=== PATIENT | female | born 1965 | race Caucasian/White ===

== ENCOUNTER 2017-01-26 18:53 | Emergency (ER) | payer MEDICARE, OTHER ==
--- NOTE | ~2017-01-26 | CR173 ---
[facility] A Service of [facility] & [facility] RADIOLOGY TEXT RESULTS PATIENT: ANIVAL TURNER LOCATION: SED : 65 UNIT #: [id number] AGE: [address]: Brian Medina MD SEX: F ORDER DR: [id number] [address] [address] [id number] E MR#: [id number] Acc #: [id number] NAME: ANIVAL TURNER : 1965 SEX: F STUDY DATE/TIME: 01/26/2017 17:58 UNIT: SED ROOM: STUDY DESCRIPTION: CR Knee 3 Views Rt Attending Physician: Brian Medina M.D. Ordering Physician: Ahsan Navarro M.D. Primary Care Physician: Gina Saleem M.D. MEDICAL IMAGING REPORT This report is preliminary unless electronic signature is present. EXAM Right knee 3 views HISTORY Fell down stairs today. Knee pain. FINDINGS 3 views are submitted. Bony elements are intact and in normal alignment. No fractures are identified. Compared with the previous films of May 2016, there has been no change. CONCLUSION Negative. Dictated by... Brian Sheikh M.D. THIS IS AN ELECTRONICALLY VERIFIED REPORT Brian Sheikh M.D. at 01/30/2017 5:10 PM KARAN/tresa TD: 01/27/2017 08:05 JOB #: [id number] MEDICAL IMAGING REPORT Page 1 of 1
--- NOTE | ~2017-01-26 | CT71 ---
[facility] A Service [facility][1] RADIOLOGY TEXT RESULTS PATIENT: ANIVAL TURNER LOCATION: SED : 65 UNIT #: [id number] AGE: [address]: Brian Medina MD SEX: F ORDER DR: [id number] [place] [id number] E MR#: [id number] Acc #: [id number] NAME: ANIVAL TURNER : 1965 SEX: F STUDY DATE/TIME: 01/26/2017 17:51 UNIT: SED ROOM: STUDY DESCRIPTION: CT Head Wo Contrast Attending Physician: Brian Medina M.D. Ordering Physician: Ahsan Navarro M.D. Primary Care Physician: Gina Saleem M.D. MEDICAL IMAGING REPORT This report is preliminary unless electronic signature is present. EXAM Noncontrast head CT. HISTORY 51-year-old female fell earlier day complains of neck pain. Loss of consciousness. COMPARISON Head CT 06/28/2016. This CT exam was performed with one or more of the following radiation dose reduction techniques: automatic exposure control, adjustment of mA and/or kV according to patient size, and iterative reconstruction. FINDINGS Axial noncontrast images were obtained from the skull base to the vertex. Ventricular size and configuration are normal. There is no evidence of acute infarct or hemorrhage. There are no extraaxial fluid collections. No mass lesion or mass effect is seen. There are no skull fractures. IMPRESSION Normal noncontrast head CT. Dictated by... Adelaida Aden M.D. THIS IS AN ELECTRONICALLY VERIFIED REPORT Adelaida Aden M.D. at 01/27/2017 5:11 PM MARK/buck TD: 01/27/2017 08:04 JOB #: [id number] [facility] A Service [facility][1] RADIOLOGY TEXT RESULTS PATIENT: ANIVAL TURNER LOCATION: SED : 65 UNIT #: [id number] AGE: [address]: Brian Medina MD SEX: F ORDER DR: MEDICAL IMAGING REPORT
--- NOTE | ~2017-01-26 | CT52 ---
[facility] A Service of [facility] RADIOLOGY TEXT RESULTS PATIENT: ANIVAL TURNER LOCATION: [facility] : 65 UNIT #: [id number] AGE: [address]: Brian Medina MD SEX: F ORDER DR: [id number] [place] [id number] E MR#: [id number] Acc #: [id number] NAME: ANIVAL TURNER : 1965 SEX: F STUDY DATE/TIME: 01/26/2017 17:56 UNIT: SED ROOM: STUDY DESCRIPTION: CT Cervical Spine Wo Cont Attending Physician: Brian Medina M.D. Ordering Physician: Ahsan Navarro M.D. Primary Care Physician: Gina Saleem M.D. MEDICAL IMAGING REPORT This report is preliminary unless electronic signature is present. EXAM CT cervical spine HISTORY 51-year-old female fell earlier today complains of neck pain, fell down steps. FINDINGS Thin section axial images performed through the cervical spine without contrast. Multiplanar reconstructed images are reviewed at a workstation. This CT exam was performed with one or more of the following radiation dose reduction techniques: automatic exposure control, adjustment of mA and/or kV according to patient size, and iterative reconstruction. Examination demonstrates postsurgical changes of C5-6 discectomy and anterior cervical fusion with firm bony fusion across the disc space. No fracture or loosening of the instrumentation. No acute fracture or malalignment. Minimal arthritic changes of the atlantoaxial joint. No significant spinal or foraminal stenosis identified on this non-myelographic CT. Extravertebral soft tissues unremarkable. IMPRESSION 1. No acute cervical spine abnormality identified. 2. Patient is status post C5-6 discectomy and anterior cervical fusion with firm bony fusion across the C5-6 disc space. Dictated by.Paramjit. Adelaida Aden M.D. THIS IS AN ELECTRONICALLY VERIFIED REPORT [facility] A Service [facility] RADIOLOGY TEXT RESULTS PATIENT: ANIVAL TURNER LOCATION: [facility] #: [id number] : [birth year] UNIT #: [id number] AGE: [address]: Brian Medina MD SEX: F ORDER DR: Adelaida Aden M.D. at 01/27/2017 5:11 PM Jannette TD: 01/27/2017 08:09 JOB #: [id number] MEDICAL IMAGING REPORT
[~2017-01-26 18:53] MED LIST: ACETAMINOPHEN PO; ADDERALL 10 MG10 M1 PO; ADDERALL 15 MG15 M1 PO; ADDERALL 30 MG30 M1 PO; ADDERALL PO; AL-MAG HYDROX-S30 M1 PO; AMBIEN PO; AMBIEN10 MG PO; AMBIEN12.5 MG PO; BACLOFEN10 MG PO; BACTRIM DS TABL1 TA2 PO; BENADRYL25 MG PO; BENTYL20 M1 PO; BENTYL20 MG DOB; BENTYL20 MG PO; CARAFATE PO; CARAFATE1 G PO; CELEXA; CELEXA PO; CELEXA10 MG PO; CITALOPRAM HBR40 MG PO; COUMADIN10 MG PO; COUMADIN4 MG PO; COUMADIN5 MG PO; DEPAKOTE PO; DICYCLOMINE HCL20 MG PO; DIFICID200 MG PO; DIGESTIVE PROB250 MG PO; DIVALPROEX SOD500 M1 PO; DURAGESIC25 MCG EXT; ELIQUIS5 MG PO; FIORICET 50-321 EACH PO; FIORICET PO; FLAGYL PO; FLAGYL250 M1 PO; FLEXERIL10 MG PO; FLONASE16 GM; GABAPENTIN600 MG PO; GABAPENTIN800 MG PO; GEODAN PO; GEODON60 MG PO; HYDROCODON-ACE1 EAC5 PO; HYDROXYZINE HCL50 MG PO; K-DUR20 ME1 PO; KEFLEX PO; KLONOPIN PO; KLONOPIN1 MG PO; LAMICTAL25 MG PO; LASIX20 MG PO; LEVAQUIN PO; LEVOFLOXACIN500 MG PO; LOMOTIL TABLET1 TAB PO; LOPERAMIDE HCL2 M1 PO; LORTAB 10-3251 EACH PO; LORTAB 10-5001 EACH PO; LORTAB 101 TAB 10/5 PO; LOVENOX SC; LOVENOX SUBQ; METRONIDAZOLE250 MG PO; MILK OF MAGNESIA PO; MILLIPRED DP5 MG PO; NAPROSYN500 MG PO; NEURONTIN PO; NEURONTIN300 MG PO; NEURONTIN600 MG PO; NEURONTIN800 MG PO; NORCO 10-325 TA1 TAB PO; NORCO 10/325 TA1 TAB PO; OFLOXACIN5 M1 OT; OMEPRAZOLE20 M2 PO; PANTOPRAZOLE SO40 MG PO; PERCOCET 10/3251 TAB PO; PERCOCET 7.5/321 TAB; PHENERGAN12.5 MG PO; PHENERGAN25 M1 DOB; PHENERGAN25 M1 PO; PHENERGAN25 MG PO; PREDNISONE PO; PROTONIX PO; REMERON SOLTAB15 MG PO; SEROQUEL PO; SORBITOL PO; TOPAMAX PO; TOPIRAGEN100 MG PO; TRAMADOL HCL50 M1 PO; TRAZODONE PO; ULTRAM PO; VALIUM10 MG PO; WARFARIN SODIU7.5 M1 PO; WARFARIN SODIUM3 M1 PO; XANAX2 MG PO; ZANTAC150 M1 PO; ZIPRASIDONE HCL40 MG PO; ZITHROMAX500 MG PO; ZYRTEC10 M1 PO; [UNRECOGNIZED DRUG - OTHER] MT
[2017-01-26 19:10] LABS: URINE SOURCE CLEAN CATCH
[2017-01-26 19:14] LABS: URINE APPEARANCE CLEAR; URINE BILIRUBIN NEG (NEG); URINE BLOOD NEG (NEG); URINE COLOR YELLOW; URINE GLUCOSE NEG (NORM); URINE KETONE NEG (NEG); URINE LEUKOCYTE ESTERASE NEG (NEG); URINE NITRATE NEG (NEG); URINE PROTEIN NEG (NEG); URINE SPECIFIC GRAVITY <=1.005 (1.003-1.035); URINE UROBILINOGEN 0.2 MG/DL (NORM)
[2017-01-26 19:15] LABS: MICRO INDICATED? NO
[2017-01-26 19:23] LABS: AMPHETAMINE NEG (NEG); BARBITURATES NEG (NEG); BENZODIAZEPINES POS (NEG); COCAINE NEG (NEG); MARIJUANA NEG (NEG); OPIATES POS (NEG); TRICYCLIC ANTIDEPRESSANTS NEG (NEG); U METHADONE NEG (NEG)
[2017-03-09] MEDS ORDERED: HYDROCODON-ACE1 EAC5 PO (16:50)
[2017-03-09] MEDS ORDERED: NEURONTIN800 MG PO (16:50)
[2017-03-09] MEDS ORDERED: XANAX0.5 M1 PO (16:51)
[2017-03-09] MEDS ORDERED: KLONOPIN1 M1 PO (16:51)
[2017-03-09] MEDS ORDERED: WELLBUTRIN XL150 M2 PO (16:51)
[2017-03-09] MEDS ORDERED: ZOLOFT50 MG PO (16:52)
[2017-03-09] MEDS ORDERED: AMBIEN12.5 M1 PO (16:52)
[2017-06-24] MEDS ORDERED: ADDERALL 15 MG15 M1 (01:38)
== END 2017-01-26 20:36 | disposition left against medical advice (07) ==
LOC: SED 18:53
PROVIDERS: Emergency Medicine
DX: S13.4XXA Sprain of ligaments of cervical spine, initial encounter (principal); S00.03XA Contusion of scalp, initial encounter; S80.01XA Contusion of right knee, initial encounter; F17.210 Nicotine dependence, cigarettes, uncomplicated; F90.9 Attention-deficit hyperactivity disorder, unspecified type; F31.9 Bipolar disorder, unspecified; W18.09XA Striking against other object with subsequent fall, initial encounter; Y92.481 Parking lot as the place of occurrence of the external cause
CPT/HCPCS: 70450; 72125; 73562; 80307; 81003; 96372; 99284; J1170; J2550

== ENCOUNTER 2017-02-26 19:36 | Emergency (ER) | payer MEDICARE ==
--- NOTE | ~2017-02-26 | CR63 ---
[facility] A Service [facility] RADIOLOGY TEXT RESULTS PATIENT: ANIVAL TURNER LOCATION: SED : 65 UNIT #: [id number] AGE: [address]: Shu Mtz SEX: F ORDER DR: [id number] [place] [id number] E MR#: [id number] Acc #: [id number] NAME: ANIVAL TURNER. : 1965 SEX: F STUDY DATE/TIME: 02/27/2017 0:03 UNIT: SED ROOM: STUDY DESCRIPTION: CR Chest 2 View Attending Physician: Shu Mtz Pa-C Referring Physician: Shu Mtz Pa-C Ordering Physician: Freddy Mcnamara Aprn Primary Care Physician: Gina Saleem M.D. MEDICAL IMAGING REPORT This report is preliminary unless electronic signature is present. EXAM PA and lateral chest HISTORY Chest pain for a few days. The patient has bronchitis. COMPARISON: 02/20/17 FINDINGS PA and lateral examination of the chest upright shows a good expansion of the parenchyma with a normal distribution of the pulmonary vascularity. There is no indication of congestion, effusion, infiltrate, tumor, or nodular density. The pleural reflections and diaphragmatic contours are normal. The cardiac silhouette and mediastinal anatomy is within normal limits. IMPRESSION Normal chest. Dictated by... Ahsan Erwin M.D. THIS IS AN ELECTRONICALLY VERIFIED REPORT Ahsan Erwin M.D. at 02/27/2017 1:24 PM ROGER/shelli TD: 02/27/2017 08:55 JOB #: [id number] [facility] A [facility] RADIOLOGY TEXT RESULTS PATIENT: ANIVAL TURNER LOCATION: SED : 65 UNIT #: [id number] AGE: [address]: Shu Mtz SEX: F ORDER DR: MEDICAL IMAGING REPORT Page 1 of 1
[2017-02-26 20:53] LABS: BASOPHIL% 0.8 % (0-2.5); EOSINOPHIL% 0.3 % (0.0-7.0); HEMATOCRIT 41.4 % (35.0-45.0); HEMOGLOBIN 13.9 gm/dL (12.0-16.0); LYMPHOCYTE# 1.5 X10e3 (1.0-3.5); LYMPHOCYTE% 53.1 % (17.0-45.0); MEAN CELL VOLUME 92.7 FL (83-96); MEAN CORPUSCULAR HGB CONC 33.4 g/dL (30-36); MONOCYTE# 0.2 X10e3 (0-1.0); NEUTROPHIL% 37.8 % (40-75); PLATELET COUNT 149 X10e3 (140-420); RED BLOOD COUNT 4.47 X10e (3.90-5.30); RED CELL DISTRIBUTION WIDTH 14.5 % (11.0-15.5); WHITE BLOOD COUNT 2.7 X10e3 (4.0-10.5)
[2017-02-26 20:56] LABS: DIFF IND YES
[2017-02-26 21:02] LABS: POC - CKMB <1.0 ng/mL (0.0-7.9); POC - TROPONIN <0.05 ng/mL (<=0.05)
[2017-02-26 21:08] LABS: BILIRUBIN,TOTAL 0.3 mg/dL (0.2-2.0); CALCIUM SERUM 8.4 mg/dL (8.4-10.2); GLOM FILT RATE Estimated 65.2 mL/min (>60); POTASSIUM 3.3 mmol/L (3.5-5.1); PROTEIN TOTAL SERUM 7.1 g/dL (6.0-8.3)
[2017-02-26 21:12] LABS: ANISOCYTOSIS SL; PLATELET ESTIMATE NORMAL (NORMAL)
[2017-03-09] MEDS ORDERED: HYDROCODON-ACE1 EAC5 PO (16:50)
[2017-03-09] MEDS ORDERED: NEURONTIN800 MG PO (16:50)
[2017-03-09] MEDS ORDERED: KLONOPIN1 M1 PO (16:51)
[2017-03-09] MEDS ORDERED: XANAX0.5 M1 PO (16:51)
[2017-03-09] MEDS ORDERED: WELLBUTRIN XL150 M2 PO (16:51)
[2017-03-09] MEDS ORDERED: ZOLOFT50 MG PO (16:52)
[2017-03-09] MEDS ORDERED: AMBIEN12.5 M1 PO (16:52)
[2017-06-24] MEDS ORDERED: ADDERALL 15 MG15 M1 (01:38)
== END 2017-02-27 01:12 | disposition home or self-care (01) ==
LOC: SED 19:36
PROVIDERS: Physician Assistant
DX: J06.9 Acute upper respiratory infection, unspecified (principal); F41.9 Anxiety disorder, unspecified; F17.200 Nicotine dependence, unspecified, uncomplicated; Z88.0 Allergy status to penicillin; Z88.8 Allergy status to other drugs, medicaments and biological substances; Z79.899 Other long term (current) drug therapy
CPT/HCPCS: 71020; 80053; 82553; 84484; 85025; 93005; 94640; 96361; 96374; 99284; J1885; J2550

== ENCOUNTER 2017-03-09 16:53 | Inpatient (IN) | payer MEDICARE, OTHER ==
--- NOTE | ~2017-03-09 | CO ---
Unit #: [id number] #: [id number] Patient: LIZ ROQUE [id number] [address] [place], [place] [address] [id number] I MR#: [id number] NAME: LIZ ROQUE ROOM: 547 Age: 51 Sex: F Admission Date: 03/12/2017 : 1965 Attending Physician: Willi Sewell M.D. Primary Care Physician: Gina Saleem M.D. Consultation Date: 03/13/2017 CONSULTATION REPORT REASON FOR CONSULTATION Depression, anxiety, panic attack. HISTORY OF PRESENT ILLNESS Ms. Liz Roque is a 51-year-old female, seen in room 547, bed 1 on 03/13/2017 at [facility]. The patient dressed casually in hospital attire, receiving IV fluids. The patient was extremely anxious. Reported that "I need IV Ativan now. I am going crazy." The patient has a history of previous multiple treatments from [facility]. The patient was treated numerous times in 01/2015, 11/2015, and last one was in 04/2016. The patient carries a diagnosis of mood disorder, not otherwise specified; history of cocaine use disorder. The patient's recent urine drug screen was positive for benzodiazepine and opiates 01/2017. The patient reported severe anxiety. The patient was recently discharged from another hospital, readmitted with syncopal attacks. The patient currently denied any suicidal or homicidal ideation. Denied any psychotic symptom, but reported feeling sad, depressed, anxious, anxiety attack, panic attack. PAST PSYCHIATRIC HISTORY Remarkable for history of previous treatment for depression, history of opiate abuse. MEDICAL HISTORY History of Crohn disease, DVT. MEDICATION HISTORY The patient is on Elrama, Neurontin 800 mg q.i.d., Klonopin 1 mg t.i.d., Wellbutrin 150 mg daily, Xanax 0.5 mg b.i.d., Ambien 12.5 mg at bedtime, Zoloft 50 mg daily. ALLERGIES To Zofran, penicillin, citric acid, Abilify. FAMILY HISTORY AND SOCIAL HISTORY The patient reports that she has a good support system. No history of abuse of drugs or alcohol, but according to [facility] reports, the patient was admitted with a diagnosis of mood disorder, not otherwise specified and opiate abuse. REVIEW OF SYSTEMS Complete review of systems is unremarkable except for severe anxiety. MENTAL STATUS EXAMINATION Unit #: [id number] #: [id number] Patient: LIZ ROQUE Vital Signs; temperature 97.9, pulse 70, respirations 18, blood pressure 113/70, oxygen saturation 96%. General appearance; the patient dressed casually in hospital attire. Attention span and concentration, fair. Speech, regular rate. Oriented in time, place, and person. Mood and affect, labile. Thought process, circumstantial. Thought content; guarded, paranoid, severe anxiety. Denied any suicidal or homicidal ideation. Recent and remote memory, fair. Language, intact. Fund of knowledge, fair. Insight and judgment, fair to slightly impaired. DIAGNOSES Psychiatric: Major depressive disorder, recurrent, severe, F33.2; agoraphobia with panic disorder, F40.01. Secondary diagnosis: Deferred. Medical diagnosis: Please refer to H and P. Stressors: Psychosocial stressors. ASSESSMENT AND PLAN 1. Supportive psychotherapy and psychoeducation provided to the patient. 2. Educated about benefits and side effects of medication and course and prognosis of illness. 3. Advised to continue with melatonin 3 mg at bedtime; Neurontin 600 mg t.i.d., agree with lowering the dosage; Klonopin 1 mg q.6 hours. The patient is on p.r.n. Ambien, Zoloft 50 mg daily, Wellbutrin 150 mg daily. We will continue to follow. Please feel free to call if any questions, telephone #[phone]. Dictated by... Raquel Mann/esau TD: 03/13/2017 19:11 JOB #: [id number] CONSULTATION REPORT Page 1 of 1 X Kee Marquez MD CONSULTATION REPORT
--- NOTE | ~2017-03-09 | TH ---
Unit #: [id number] #: [id number] Patient: ANIVAL TURNER [id number] [address] [address] [id number] I MR#: [id number] NAME: ANIVAL TURNER. : 1965 SEX: F STUDY DATE/TIME: 03/14/2017 UNIT: C5B ROOM: 547 STUDY DESCRIPTION: CARDIOLOGY LEXISCAN STRESS Attending Physician: Willi Sewell M.D. Primary Care Physician: Gina Saleem M.D. CARDIOLOGY REPORT EXAM Lexiscan Cardiolite stress test, nuclear portion PROCEDURE Using technetium-99m labeled Cardiolite rest and stress SPECT images were obtained. Multiple SPECT images were obtained in various views including horizontal and vertical long axis, and short axis views of the left ventricle. Images were obtained by gated SPECT method. Patient was administered 11.45 mCi of Cardiolite at rest. The patient was administered 35.3 mCi of Cardiolite after Lexiscan infusion was completed. On the stress images, there is a small area of mild decreased tracer uptake activity anteroapically. The rest images also show a small area of mild decreased tracer uptake activity anteroapically. Comparing rest and stress images, there is a small area of predominantly fixed defect seen anterior apically of unclear significance. The left ventricular ejection fraction is calculated to be 54%. There is no focal wall motion abnormality seen. CONCLUSION 1. There is a small area of predominantly fixed defect seen anteroapically of unclear significance. 2. Left ventricular ejection fraction is calculated to be 54%. 3. No focal wall motion abnormality seen. 4. Technically limited study. Clinical correlation is requested. Dictated by... Raquel Barron TD: 03/14/2017 18:42 JOB #: [id number] Unit #: [id number] #: [id number] Patient: ANIVAL TURNER CARDIOLOGY REPORT Page 1 of 1 X Sarita Mims MD CARDIOLOGY REPORT
--- NOTE | ~2017-03-09 | DS ---
Unit #: [id number] #: [id number] Patient: LIZ ROQUE [id number] [address] [place], [place] [address] [id number] I MR#: [id number] NAME: LIZ ROQUE. ROOM: 547 Age: 51 Sex: F Admission Date: 03/09/2017 : 1965 Discharge Date: 03/14/2017 Attending Physician: Willi Sewell M.D. Primary Care Physician: Gina Saleem M.D. DISCHARGE SUMMARY FINAL DIAGNOSES 1. Atypical chest pain. Acute myocardial infarction has been ruled out. Patient had a Cardiolite stress test which is preliminarily negative. We are going to confirm it is negative before discharge. 2. Syncope. Possibly it was secondary to orthostasis which is resolved. 3. Questionable history of hematemesis with history of Crohn disease. Patient was seen by Dr. Mcnulty. Patient follows up with a surgeon as an outpatient. Her hemoglobin is stable. EGD and colonoscopy are deferred to be done as an outpatient. I have discussed with manager drive at length. 4. Ongoing diarrhea. Patient complained of ongoing diarrhea mostly secondary to Crohn disease. Clostridium difficile was done in the hospital and was negative. 5. Chronic obstructive pulmonary disease which is stable. 6. Bipolar disorder. Continue home medications. DISCHARGE MEDICATIONS 1. Protonix 40 mg p.o. daily. 2. Tylenol 650 q.4 p.r.n. 3. Neurontin 600 mg 3 times daily. 4. Wellbutrin 150 mg daily. 5. Zoloft 50 mg daily. 6. Ambien continue home dose. 7. Klonopin 1 mg t.i.d. p.r.n. 8. Hydrocodone and acetaminophen 10/325 at 1 tablet p.o. t.i.d. p.r.n. Please note, I have written a prescription for hydrocodone for 10 tablets. Patient will follow with primary care provider for ongoing treatment. DIAGNOSTIC STUDIES LABORATORY: Hemoglobin is 12.3, hematocrit 38, WBC 4.6, and platelet count is 171,000. Hemoccult in stool is positive. C-reactive protein is less than 0.5. Sodium 141, potassium 4.2, chloride 108, BUN 5, creatinine 0.9, and albumin 3.4. Lipid profile shows total cholesterol 144, triglycerides 152, HDL 43, and LDL 71. Urinalysis was normal. PHYSICAL EXAMINATION ON DISCHARGE VITAL SIGNS: Blood pressure is 114/60, respiratory rate 20, pulse 79, temperature 97.9, and oxygen saturation is 98%. CHEST: Fair air entry. No additional sounds. No wheezing. CARDIOVASCULAR: S1 and S2 positive. Regular rhythm. ABDOMEN: Soft. Mild tenderness. Voluntary guarding is noted. EXTREMITIES: Negative edema. Unit #: [id number] #: [id number] Patient: LIZ ROQUE HOSPITAL COURSE Ms. Liz Roque is a 51-year-old female who was admitted by my colleague, Dr. Sewell, with a syncopal episode, hypotension, and atypical chest pain. Acute myocardial infarction was ruled out. Patient was seen by Cardiology and stress test was done which was negative. Patient also complained of hematemesis and diarrhea. Clostridium difficile was ruled out. There was a question of Crohn disease exacerbation. Patient has had a subtotal colectomy. 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 Infectious etiology was ruled out. A CRP was done which was in normal range. Patient may require EGD and colonoscopy which can be done as an outpatient as patient's hemoglobin and hematocrit are stable. DISCHARGE INSTRUCTIONS 1. Patient is being discharged home in stable condition. 2. Patient has been informed that I can only give her two days of pain medication. She can follow up with her primary care provider. 3. Follow up with Gastroenterology and surgeon. She follows up as an outpatient for Crohn disease management. 4. If she continues to have hematemesis, EGD may need to be done. She does verbalize understanding. 1. Dictated by... Raquel Diggs TD: 03/14/2017 15:16 JOB #: [id number] DISCHARGE SUMMARY Page 1 of 1 X Elisha Polk MD X DISCHARGE SUMMARY
--- NOTE | ~2017-03-09 | EKG ---
PATIENT: ANIVAL TURNER UNIT #: [id number] Ventricular Rate: 71 BPM Atrial Rate: 71 BPM P-R Interval: 172 ms QRS Duration: 82 ms Q-T Interval: 420 ms QTC Calculation(Bezet): 456 ms P [place]: 54 degrees Calculated R [place]: 62 degrees Calculated T [place]: 68 degrees Diagnosis Line: Normal sinus rhythm Diagnosis Line: Nonspecific ST abnormality Diagnosis Line: Abnormal ECG Diagnosis Line: No previous ECGs available Diagnosis Line: Confirmed by CARMINE SAMANIEGO MD ([id number]) on Diagnosis Line: 03/10/2017 11:08:29 PM INTERPRETING MD: ANAI
--- NOTE | ~2017-03-09 | HP ---
Unit #: [id number] #: [id number] Patient: LIZ ROQUE [id number] [address] [place], [place] [address] [id number] I MR#: [id number] NAME: LIZ ROQUE ROOM: 547 Age: 51 Sex: F Admission Date: 03/09/2017 : 1965 Attending Physician: Willi Sewell M.D. Primary Care Physician: Gina Saleem M.D. HISTORY AND PHYSICAL ADMISSION DIAGNOSES 1. Syncope. 2. Hypertension. 3. Chronic low back pain. 4. History of Crohn disease. 5. Bipolar disorder. 6. History of DVT. 7. History of ADHD. 8. Anxiety and depression. HISTORY OF PRESENT ILLNESS Ms. Liz Roque is a 51-year-old female, patient of Dr. Lazo, who apparently was recently discharged from [facility] where she tells me that she was admitted and treated for pneumonia. She went home and felt ill yesterday. Apparently she suffered a syncopal episode and was brought to the emergency room where she was found hypotensive with systolic blood pressure in the 70s. She had some decreased GFR at 52.3. The patient states that she has a history of Crohn disease and she has been having diarrhea so it was thought that patient might have been dehydrated so she was started on IV fluids and her blood pressure responded well. She is currently status post evaluation per Cardiology who is doing a stress test to rule out any ischemic origin to her syncopal episode but, to me, it looks more like an orthostatic issue. The patient denies any fever or chills. Denies any nausea or vomiting. Complains of some diarrhea and she complains of her chronic low back pain and asking for IV pain medicine. She also is asking to resume her home dose of Ambien. Looking at her home medications, she has been on looks like Klonopin, also some Xanax and some Ambien. Currently, she denies any chest pain. Denies any headache or dizziness. Denies any fevers or chills or dysuria. REVIEW OF SYSTEMS Twelve-point review of systems on this patient is basically negative except as above. PAST MEDICAL HISTORY Significant for: 1. History of Crohn disease. 2. History of bipolar disorder. 3. History of anxiety and depression. 4. History of DVT with chronic anticoagulation; however, she had not been on chronic anticoagulation on this admission. 5. She also has a history of ADHD. Unit #: [id number] #: [id number] Patient: LIZ ROQUE A PAST SURGICAL HISTORY Significant for: 1. Hysterectomy. 2. Tonsillectomy. 3. Partial colectomy. 4. Carpal tunnel surgery. 5. Cervical spine fusion. 6. Hernia repair. 7. Left leg surgery. HOME MEDICATIONS 1. [place] 10 one tablet t.i.d. p.r.n. 2. Neurontin 800 mg q.i.d. 3. Klonopin 1 mg t.i.d. 4. Wellbutrin 150 mg daily. 5. Xanax 0.5 mg b.i.d. 6. Ambien 12.5 mg h.s. 7. Zoloft 50 mg p.o. daily. ALLERGIES Include: 1. Zofran. 2. Penicillin. 3. Citric acid. 4. Abilify. SOCIAL HISTORY She tells me that she quit smoking 10 days ago. Denies any alcohol or illicit drug use. FAMILY HISTORY Unremarkable. PHYSICAL EXAMINATION VITAL SIGNS: BP 143/100, heart rate 72, respirations 18, temperature 98.1. GENERAL: The patient is a 51-year-old female in no acute distress. HEENT: Head is atraumatic. Pupils equal, round, reactive to light and accommodation. Extraocular muscles are intact. Oropharynx is clear. NECK: Supple. No mass, no JVD, no bruits. LUNGS: Clear to auscultation with decreased breathing sounds at the bases. HEART: S1, S2. No murmurs. ABDOMEN: Obese, soft, nontender, nondistended. LOWER EXTREMITIES: Without any cyanosis, clubbing, or edema. NEUROLOGIC: The patient is grossly intact without any focal deficits. DIAGNOSTIC STUDIES LABORATORY: White count 6.3, hemoglobin 12.9, hematocrit 39.4. Chemistry this morning basically unremarkable. Set of cardiac enzymes negative. IMAGING: Chest x-ray on admission was done which shows normal portable chest. ASSESSMENT AND PLAN 1. Syncope status post Cardiology evaluation. Follow up on the stress test. 2. Hypotension. Responded well to IV fluids, stable. Unit #: [id number] #: [id number] Patient: LIZ ROQUE 3. Chronic low back pain. I had a long discussion with the patient. I told her that I would not give her any IV pain medications at this point. Will continue [place]. Will start on some p.r.n. Toradol. 4. History of Crohn disease with ongoing diarrhea. Will ask Dr. Mcnulty to see since he is familiar with the patient. 5. Bipolar disorder, ADHD, anxiety and depression with some multiple different benzodiazepines. Will get Dr. Marquez to evaluate. 6. GI and DVT prophylaxis. Continue Protonix. Will start on Lovenox since she does have a history of DVT. Dictated by Willi Sewell M.D. OC/luis TD: 03/10/2017 21:35 JOB #: [id number] HISTORY AND PHYSICAL Page 1 of 1 X Willi Sewell MD X HISTORY AND PHYSICAL
--- NOTE | ~2017-03-09 | CR72 ---
[facility] A Service of [facility] & [facility] RADIOLOGY TEXT RESULTS PATIENT: ANIVAL TURNER LOCATION: [place] [address] : [birth year] UNIT #: [id number] AGE: [address]: Willi Sewell MD SEX: F ORDER DR: [id number] [facility] [address] [place], [place] [address] [id number] E MR#: [id number] Acc #: [id number] NAME: ANIVAL TURNER : 1965 SEX: F STUDY DATE/TIME: 03/09/2017 18:15 UNIT: [facility] ROOM: STUDY DESCRIPTION: CR Chest Single View Portable Attending Physician: Laz Osborne Ordering Physician: Ed Severo Li M.D. Primary Care Physician: Gina Saleem M.D. MEDICAL IMAGING REPORT This report is preliminary unless electronic signature is present EXAM Portable chest HISTORY Shortness of breath for the past 2 days with recent diagnosis of pneumonia. COMPARISON 02/27/2017 TECHNIQUE Single view chest was obtained. FINDINGS A single AP portable view of the chest shows both lungs to be clear. The heart is normal in size. The mediastinal contour is normal. No significant bone abnormalities are seen. IMPRESSION Normal portable chest. Dictated by... Von Mane M.D. THIS IS AN ELECTRONICALLY VERIFIED REPORT Von Mane M.D. at 03/09/2017 10:20 PM RLF/to TD: 03/09/2017 19:05 JOB #: [id number] MEDICAL IMAGING REPORT Page 1 of 1 COPY
--- NOTE | ~2017-03-09 | EKG ---
PATIENT: ANIVAL TURNER UNIT #: [id number] Ventricular Rate: 79 BPM Atrial Rate: 79 BPM P-R Interval: 150 ms QRS Duration: 90 ms Q-T Interval: 400 ms QTC Calculation(Bezet): 458 ms P [place]: 29 degrees Calculated R [place]: 57 degrees Calculated T [place]: 56 degrees Diagnosis Line: Normal sinus rhythm Diagnosis Line: Nonspecific T wave abnormality Diagnosis Line: Abnormal ECG Diagnosis Line: No previous ECGs available Diagnosis Line: Confirmed by CARMINE SAMANIEGO MD ([id number]) on Diagnosis Line: 03/10/2017 11:18:54 PM INTERPRETING MD: ANAI
--- NOTE | ~2017-03-09 | A ---
[facility] Nutrition Therapy DATE: 03/11/17 Patient: ANIVAL TURNER Physician: TANJA Address: [address] [place] [address] DRIVE Room/Bed: [address] [place] [address], Zip: [place] [address] Admit Date: 03/09/17 Date of : 65 Height: 5 8 Weight: 201 91.2 NUTRITIONAL ASSESSMENT: REASON: 2 NUTRITIONAL RISK POINTS- 10# UNPLANNED WEIGHT LOSS PATIENT ADMITTED FOR DEHYDRATION PMH: HTN, CHRONIC BACK PAIN, CROHNS DZ, BIPOLAR DISORDER, ANXIETY, DEPRESSION Anthropometrics: HT: 5'8", WT: 200#, BMI: 30.4 Labs: 03/11/17- BUN <5 ALL OTHER NUTRITIONAL LABS WNL Meds: AMBIEN, NEURONTIN, MELATONIN, NACL, ZOLOFT I/O & Bowel function: 3600/501 Skin Integrity: INTACT Estimated Nutrition Needs: INCREASED 2' DEHYDRATION, WEIGHT LOSS Assessment: PATIENT IS A 51 Y/O FEMALE ADMITTED FOR DEHYDRATION. PATIENT STATED A GOOD APPETITE, A 10# WEIGHT LOSS OVER LAST FEW WEEKS D/T ILLNESS, AND SOME BLEEDING FROM HER RECTUM FROM CROHN'S DISEASE. SHE ALSO STATED SHE LOVES THE SOUP AND THAT SHE IS AWARE OF THE FOODS TO AVOID WHEN EXPERIENCING ACTIVE SYMPTOMS FROM HER CROHN'S DISEASE. IT IS NOTED THAT SHE WAS DISCHARGED FROM [facility] ON 03/03/17 FOR PNA. WEIGHT HX PER [facility] SHOWS A 30# WEIGHT GAIN OVER LAST YEAR. PATIENT IS ON A REGULAR DIET. SHE DID HAVE SOME C/O DIARRHEA AND NAUSEA. PATIENT HAS AN ORDER TO CHECK FOR C-DIFF. THIS RD DISCUSSED DRINKING PLENTY OF FLUIDS AND EATING SOFT, EASY TO DIGEST FOODS. PATIENT DID NOT HAVE ANY NUTRITION EDUCATION QUESTIONS ATT. Dx: INADEQUATE NUTRIENT INTAKE R/T CURRENT CONDITION AEB DEHYDRATION, DIARRHEA, SELF-REPORTED WEIGHT LOSS Intervention: REGULAR DIET, MEDS AND FLUIDS PER MD, RD ASSESSMENT Monitoring, Evaluation and Goals: 1. ADEQUATE PO INTAKES >50% OF MEALS 2. PREVENT, CORRECT MICRO/MACRO NUTRIENT DEFICIENCIES MONITOR: WEIGHTS, LABS, PO/FLUID INTAKES [facility] Nutrition Therapy DATE: 03/11/17 Patient: ANIVAL TURNER Physician: TANJA Address: [address] [place] [address] DRIVE Room/Bed: [address] [place] [address], Zip: [place] [id number] Admit Date: 03/09/17 Date of : [birth year] Height: 5 8 Weight: 201 91.2 Recommendations: 1. CONTINUE REGULAR DIET TOLERATED. DISCUSSED FOOD OPTIONS WITH PATIENT D/T ACTIVE CROHNS DISEASE. 2. ENCOURAGE ADEQUATE PO AND FLUID INTAKES 3. CONSULT RD WITH ANY FURTHER NUTRITION QUESTIONS OR CONCERNS RD TO F/U PER PROTOCOL AND PRN R/T PATIENT MILDLY COMPROMISED Respectfully, D[place]AS CROWLEY, JENNIFER, LD Food and Nutritional Services [facility] cc: client file
--- NOTE | ~2017-03-09 | ST ---
Unit #: [id number] #: [id number] Patient: ANIVAL TURNER [id number] [facility] [address] [facility] [address]. [place], [place] [address] [id number] I MR#: [id number] NAME: ANIVAL TURNER. : 1965 SEX: F STUDY DATE/TIME: 03/14/2017 UNIT: C5B ROOM: 547 STUDY DESCRIPTION: Cardiac stress test. Attending Physician: Willi Sewell M.D. Primary Care Physician: Gina Saleem M.D. CARDIOLOGY REPORT EXAM Lexiscan Cardiolite stress test. PROCEDURE Baseline EKG normal sinus rhythm with ventricular rate 68 beats per minute, early repolarization, poor R wave progression. Lexiscan is a 4-minute test with Lexiscan being injected within the first minute, followed by Cardiolite. EKG during the test was equivocal to baseline. No acute ischemia changes. The patient had no complaints of chest pain, palpitations or dizziness. Had increased shortness of breath and fatigue which resolved in recovery phase. Maximum heart rate response was 97 beats per minute with maximum blood pressure response of 125/79 mmHg. Cardiolite was injected after Lexiscan within the first minute of the test. Radionuclide test pending. Please correlate with nuclear images. Dictated by... London Bowers M.D. CEC/christy TD: 03/14/2017 08:38 JOB #: [id number] CC: Gina Saleem M.D. [facility] CARDIOLOGY REPORT Page 1 of 1 X Leticia Gibbons APRN CARDIOLOGY REPORT
--- NOTE | ~2017-03-09 | CO ---
Unit #: [id number] #: [id number] Patient: ANIVAL ROQUE [id number] [address] [place], [place] [address] [id number] I MR#: [id number] NAME: ANIVAL ROQUE ROOM: 547 Age: 51 Sex: F Admission Date: 03/09/2017 : 1965 Attending Physician: Willi Sewell M.D. Primary Care Physician: Gina Saleem M.D. Consultation Date: 03/11/2017 CONSULTATION REPORT REASON FOR CONSULTATION Diarrhea. HISTORY OF PRESENTING ILLNESS Ms. Roque is a 51-year-old lady. She was admitted with chest pain and shortness of breath. She also has been complaining of some diarrhea. She has a history of Crohn disease, apparently had subtotal colectomy. Last scope was done in 11/2015, did not show any disease activity. She is mainly concerned about her breathing and pain as well as shortness of breath. She apparently had a syncopal attack before coming in also. 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 Of note, she was just discharged 2 days ago from [facility]. REVIEW OF SYSTEMS Complete review of systems was done, which is unremarkable other than as mentioned above. PAST MEDICAL HISTORY Significant for; 1. Crohn disease. Last scope was done in 11/2015, shows no disease activity. 2. Bipolar disorder. 3. DVTs. 4. History of ADHD. MEDICATIONS Include [place], Neurontin, Klonopin, Wellbutrin, Xanax, Ambien, and Zoloft. ALLERGIES To Zofran, penicillin, citric acid, and Abilify. SOCIAL HISTORY Ex-smoker. Denies alcohol or drug abuse. FAMILY HISTORY Noncontributory. PHYSICAL EXAMINATION VITAL SIGNS: Stable. Afebrile. GENERAL: No acute distress. HEENT: Pupils are equal and reactive. Sclerae anicteric. Oral mucosa Unit #: [id number] #: [id number] Patient: ANIVAL ROQUE moist. CHEST: Scattered rhonchi bilaterally. CARDIOVASCULAR: Regular rate and rhythm. No murmurs. ABDOMEN: Mild tenderness subjectively. No guarding. No rebound. No distention. NEUROLOGIC: Intact. No focal sensory or motor deficits. DIAGNOSTIC STUDIES LABORATORY RESULTS: Completely normal CBC. Chemistries unremarkable also. IMAGING STUDIES: Chest x-ray was negative. ASSESSMENT AND PLAN 1. 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 We will continue symptomatic treatment. We will rule out any infectious process including Clostridium diff and check stool studies. We will also check CRP to look for disease activity. 2. Pneumonia. 3. Chest pain. 4. Syncope. Thank you Dr. Sewell for this interesting consult. We will follow along. Dictated by... Raquel Gee/esau TD: 03/11/2017 14:22 JOB #: [id number] CONSULTATION REPORT Page 1 of 1 X Barney Mcnulty MD X CONSULTATION REPORT
--- NOTE | ~2017-03-09 | CO ---
Unit #: [id number] #: [id number] Patient: LIZ ROQUE [id number] [address] [place], [place] [address] [id number] I MR#: [id number] NAME: LIZ ROQUE ROOM: 547 Age: 51 Sex: F Admission Date: 03/12/2017 : 1965 Attending Physician: Willi Sewell M.D. Primary Care Physician: Gina Saleem M.D. Consultation Date: 03/14/2017 CONSULTATION REPORT REASON FOR CONSULTATION Followup. DISCUSSION Ms. Liz Roque is a 51-year-old female seen in room 547, bed 1 on 03/14/17 at [facility]. The patient's vital signs are 97.7, 79, 20, 114/60, oxygen saturation 98%. Patient continues to report having problem with the anxiety, mood lability, depression but denied any suicidal or homicidal ideation, denied any psychotic symptom. Patient is compliant with medication, currently on Neurontin, Wellbutrin, Zoloft, Klonopin p.r.n. Patient denied any other complaints. REVIEW OF SYSTEMS Complete review of systems is unremarkable. MENTAL STATUS EXAMINATION GENERAL APPEARANCE: Patient dressed casually. Attention span and concentration: Fair. SPEECH: A regular rate, coherent. ORIENTATION: Oriented in time, place and person. MOOD AND AFFECT: Labile. THOUGHT PROCESS: Circumstantial. THOUGHT CONTENT: Patient denied any suicidal or homicidal ideation or any psychotic symptom. MEMORY: Recent and remote memory fair. LANGUAGE: Intact. Fund of knowledge: Fair. Insight and judgment: Fair to poor. DIAGNOSES PSYCHIATRIC: 1. Major depressive disorder, recurrent, moderate, F33.2. 2. Anxiety disorder, not otherwise specified, F40.01. ASSESSMENT/PLAN 1. Supportive psychotherapy and psychoeducation provided to patient 2. Educated about benefits and side effects of medication and course and prognosis of illness. 3. Advised to continue with the current medication: a. Neurontin 600 mg t.i.d. b. Wellbutrin 150 mg q.a.m. c. Zoloft 50 mg daily. shyann. Ambien p.r.n. e. Klonopin 1 mg t.i.d. p.r.n. for anxiety. Unit #: [id number] #: [id number] Patient: LIZ ROQUE Please feel free to call if any question; telephone number [phone]. Dictated by... Raquel Mann/chalino TD: 03/14/2017 20:50 JOB #: [id number] CONSULTATION REPORT Page 1 of 1 X Kee Marquez MD CONSULTATION REPORT
[2017-03-09 16:19] LABS: BASOPHIL# 0.1 X10e3 (0-0.3); EOSINOPHIL# 0.1 X10e3 (0-0.7); EOSINOPHIL% 1.4 % (0.0-7.0); HEMATOCRIT 43.6 % (35.0-45.0); HEMOGLOBIN 14.4 gm/dL (12.0-16.0); LYMPHOCYTE# 1.6 X10e3 (1.0-3.5); LYMPHOCYTE% 30.6 % (17.0-45.0); MEAN CELL VOLUME 91.8 FL (83-96); MEAN CORPUSCULAR HEMOGLOBIN 30.4 PG (28-34); MEAN CORPUSCULAR HGB CONC 33.1 g/dL (30-36); MEAN PLATELET VOLUME 7.4 FL (6.5-11.5); MONOCYTE# 0.3 X10e3 (0-1.0); MONOCYTE% 6.1 % (3.0-12.0); NEUTROPHIL# 3.2 X10e3 (1.5-7.1); NEUTROPHIL% 60.9 % (40-75); PLATELET COUNT 298 X10e3 (140-420); RED BLOOD COUNT 4.75 X10e (3.90-5.30); RED CELL DISTRIBUTION WIDTH 14.9 % (11.0-15.5); WHITE BLOOD COUNT 5.3 X10e3 (4.0-10.5)
[2017-03-09 16:22] LABS: POC - CKMB <1.0 ng/mL (0.0-7.9); POC - TROPONIN <0.05 ng/mL (<=0.05)
[2017-03-09 16:25] LABS: DIFF IND NO
[2017-03-09 16:48] LABS: ALBUMIN SERUM 4.2 g/dL (3.5-5.0); BILIRUBIN, DIRECT 0.1 mg/dL (0.0-0.2); BILIRUBIN,INDIRECT 0.9 mg/dL (0.0-0.9); BUN/CREATININE RATIO 5.83; CALCIUM SERUM 9.4 mg/dL (8.4-10.2); CREATININE SERUM 1.2 mg/dL (0.6-1.4); GLOM FILT RATE Estimated 52.3 mL/min (>60); POTASSIUM 3.2 mmol/L (3.5-5.1); PROTEIN TOTAL SERUM 6.9 g/dL (6.0-8.3)
[~2017-03-09 16:53] MED LIST changes: +AMBIEN12.5 M1 PO; +KLONOPIN1 M1 PO; +WELLBUTRIN XL150 M2 PO; +XANAX0.5 M1 PO; +ZOLOFT50 MG PO
[2017-03-09 17:20] LABS: URINE SOURCE CLEAN CATCH
[2017-03-09 17:31] LABS: URINE APPEARANCE CLEAR; URINE BILIRUBIN NEG (NEG); URINE BLOOD NEG (NEG); URINE COLOR YELLOW; URINE GLUCOSE NEG (NEG); URINE KETONE NEG (NEG); URINE LEUKOCYTE ESTERASE NEG (NEG); URINE NITRATE NEG (NEG); URINE PH 7.5 (5-8); URINE PROTEIN NEG (NEG); URINE SPECIFIC GRAVITY 1.004 (1.003-1.035); URINE UROBILINOGEN 0.2 MG/DL (NEG)
[2017-03-09 17:37] LABS: CULTURE INDICATED? NO
[2017-03-10 04:45] LABS: BASOPHIL% 0.8 % (0-2.5); DIFF IND NO; EOSINOPHIL# 0.1 X10e3 (0-0.7); EOSINOPHIL% 1.7 % (0.0-7.0); HEMATOCRIT 39.4 % (35.0-45.0); HEMOGLOBIN 12.9 gm/dL (12.0-16.0); LYMPHOCYTE# 2.6 X10e3 (1.0-3.5); LYMPHOCYTE% 40.8 % (17.0-45.0); MEAN CORPUSCULAR HGB CONC 32.7 g/dL (30-36); MEAN PLATELET VOLUME 7.4 FL (6.5-11.5); MONOCYTE# 0.5 X10e3 (0-1.0); MONOCYTE% 7.4 % (3.0-12.0); NEUTROPHIL# 3.1 X10e3 (1.5-7.1); NEUTROPHIL% 49.3 % (40-75); PLATELET COUNT 253 X10e3 (140-420); RED BLOOD COUNT 4.28 X10e (3.90-5.30); RED CELL DISTRIBUTION WIDTH 14.7 % (11.0-15.5); WHITE BLOOD COUNT 6.3 X10e3 (4.0-10.5)
[2017-03-10 05:11] LABS: CALCIUM SERUM 8.6 mg/dL (8.4-10.2); GLOM FILT RATE Estimated 65.2 mL/min (>60); POTASSIUM 3.7 mmol/L (3.5-5.1)
[2017-03-10 05:39] LABS: CK TOTAL 32 IU/L (26-140)
[2017-03-10 11:41] LABS: CHOLESTEROL 144 mg/dL (0-200); HDL CHOLESTEROL 43 mg/dL (35-95); LDL CHOLESTEROL 71 mg/dL (-130); LDL/HDL RATIO 2 RATIO (0-4); TRIGLYCERIDES 152 mg/dL (10-160)
[2017-03-11 05:03] LABS: HEMATOCRIT 37.5 % (35.0-45.0); HEMOGLOBIN 12.3 gm/dL (12.0-16.0); MEAN CELL VOLUME 93.5 FL (83-96); MEAN CORPUSCULAR HEMOGLOBIN 30.7 PG (28-34); MEAN CORPUSCULAR HGB CONC 32.8 g/dL (30-36); MEAN PLATELET VOLUME 7.4 FL (6.5-11.5); RED BLOOD COUNT 4.01 X10e (3.90-5.30); WHITE BLOOD COUNT 4.9 X10e3 (4.0-10.5)
[2017-03-11 06:12] LABS: BLOOD UREA NITROGEN <5 mg/dL (9-23); CALCIUM SERUM 8.4 mg/dL (8.4-10.2); CARBON DIOXIDE 23 mmol/L (22-31); CHLORIDE 112 mmol/L (100-111); GLOM FILT RATE Estimated 65.2 mL/min (>60); GLUCOSE FASTING 82 mg/dL (70-110); POTASSIUM 3.8 mmol/L (3.5-5.1); SODIUM 142 mmol/L (135-145)
[2017-03-12 07:44] LABS: HEMATOCRIT 36.9 % (35.0-45.0); HEMOGLOBIN 12.1 gm/dL (12.0-16.0); MEAN CELL VOLUME 94.2 FL (83-96); MEAN CORPUSCULAR HEMOGLOBIN 30.8 PG (28-34); MEAN CORPUSCULAR HGB CONC 32.7 g/dL (30-36); MEAN PLATELET VOLUME 7.7 FL (6.5-11.5); RED BLOOD COUNT 3.92 X10e (3.90-5.30); RED CELL DISTRIBUTION WIDTH 14.8 % (11.0-15.5); WHITE BLOOD COUNT 4.5 X10e3 (4.0-10.5)
[2017-03-12 08:18] LABS: CHOLESTEROL 161 mg/dL (0-200); HDL CHOLESTEROL 43 mg/dL (35-95); LDL CHOLESTEROL 91 mg/dL (-130); LDL/HDL RATIO 2 RATIO (0-4); TRIGLYCERIDES 134 mg/dL (10-160)
[2017-03-12 08:33] LABS: ALBUMIN SERUM 3.4 g/dL (3.5-5.0); BILIRUBIN,TOTAL 0.8 mg/dL (0.2-2.0); BUN/CREATININE RATIO 5.55; CALCIUM SERUM 8.8 mg/dL (8.4-10.2); CREATININE SERUM 0.9 mg/dL (0.6-1.4); GLOM FILT RATE Estimated 74.1 mL/min (>60); POTASSIUM 4.2 mmol/L (3.5-5.1); PROTEIN TOTAL SERUM 5.7 g/dL (6.0-8.3)
[2017-03-13 08:36] LABS: HEMATOCRIT 36.7 % (35.0-45.0); HEMOGLOBIN 12.2 gm/dL (12.0-16.0); MEAN CELL VOLUME 93.4 FL (83-96); MEAN CORPUSCULAR HEMOGLOBIN 30.9 PG (28-34); MEAN CORPUSCULAR HGB CONC 33.1 g/dL (30-36); MEAN PLATELET VOLUME 7.9 FL (6.5-11.5); RED BLOOD COUNT 3.93 X10e (3.90-5.30); RED CELL DISTRIBUTION WIDTH 15.1 % (11.0-15.5); WHITE BLOOD COUNT 4.6 X10e3 (4.0-10.5)
[2017-03-14 12:39] LABS: HEMOGLOBIN 12.3 gm/dL (12.0-16.0)
[2017-03-14] MEDS ORDERED: NEURONTIN600 MG PO (14:11)
[2017-03-14] MEDS ORDERED: ACETAMINOPHEN325 MG PO (14:12)
[2017-03-14] MEDS ORDERED: PROTONIX PO (14:13)
[2017-06-24] MEDS ORDERED: ADDERALL 15 MG15 M1 (01:38)
== END 2017-03-14 17:39 | disposition home or self-care (01) | DRG 312 ==
LOC: CED 16:53 → CEDOF 19:10 → C5B 03-12 14:47
PROVIDERS: Emergency Medicine; Hospitalist; Nurse Practitioner Family
PROC: B24DYZZ Ultrasonography of Pediatric Heart using Other Contrast (ICD-10-PCS; principal; 2017-03-13)
DX: I95.1 Orthostatic hypotension (principal); F33.2 Major depressive disorder, recurrent severe without psychotic features; K91.2 Postsurgical malabsorption, not elsewhere classified; K50.90 Crohn's disease, unspecified, without complications; J44.1 Chronic obstructive pulmonary disease with (acute) exacerbation; E86.0 Dehydration; R07.89 Other chest pain; R19.7 Diarrhea, unspecified; F40.01 Agoraphobia with panic disorder; Z90.710 Acquired absence of both cervix and uterus; Z88.0 Allergy status to penicillin; Z88.8 Allergy status to other drugs, medicaments and biological substances; M54.5 Low back pain; F90.9 Attention-deficit hyperactivity disorder, unspecified type; F17.210 Nicotine dependence, cigarettes, uncomplicated
CPT/HCPCS: 36415; 71010; 78452; 80048; 80053; 80061; 80076; 81003; 82150; 82274; 82550; 82553; 83690; 84484; 85014; 85018; 85025; 85027; 86140; 87045; 87427; 87493; 87899; 93005; 93017; 93306; 94640; 96361; 96374; 99285; A9500; J1650; J1885; J2270; J2765; J2785

== ENCOUNTER 2017-03-30 23:55 | Emergency (ER) | payer MEDICARE, OTHER ==
--- NOTE | ~2017-03-30 | CR7 ---
[facility]. [facility] A Service of [facility] & [facility] RADIOLOGY TEXT RESULTS PATIENT: ANIVAL TURNER LOCATION: SED : 65 UNIT #: [id number] AGE: [address]: Amna Maxwell MD SEX: F ORDER DR: [id number] [place] [id number] E MR#: [id number] Acc #: [id number] NAME: ANIVAL TURNER : 1965 SEX: F STUDY DATE/TIME: 03/31/2017 00:39 UNIT: SED ROOM: STUDY DESCRIPTION: CR Abdomen Single AP View Attending Physician: Amna Maxwell M.D. Ordering Physician: Jorge A Quintero M.D. Primary Care Physician: Gina Saleem M.D. MEDICAL IMAGING REPORT This report is preliminary unless electronic signature is present. EXAM KUB 03/31 at 0039 hours INDICATIONS Left flank pain and hematuria started today. FINDINGS Supine views of the abdomen and pelvis are compared with CT abdomen and pelvis performed yesterday. There is some retained oral contrast in the lower GI tract. The bowel gas pattern is normal. No obstruction is seen. There is nothing to suggest renal or ureteral calculus. IMPRESSION Oral contrast in the lower GI tract from yesterday's CT. Bowel gas pattern is normal. Dictated by... Von Rosales Jr., M.D. THIS IS AN ELECTRONICALLY VERIFIED REPORT Von Rosales Jr., M.D. at 03/31/2017 5:36 AM IRAM/renetta TD: 03/31/2017 03:20 JOB #: [id number] MEDICAL IMAGING REPORT Page 1 of 1
[~2017-03-30 23:55] MED LIST changes: +ACETAMINOPHEN325 MG PO
[2017-03-31 01:13] LABS: URINE SOURCE CLEAN CATCH
[2017-03-31 01:16] LABS: URINE APPEARANCE HAZY; URINE BILIRUBIN NEG (NEG); URINE BLOOD 3+ (NEG); URINE COLOR YELLOW; URINE GLUCOSE NEG (NORM); URINE KETONE NEG (NEG); URINE LEUKOCYTE ESTERASE NEG (NEG); URINE NITRATE NEG (NEG); URINE PROTEIN 1+ (NEG); URINE UROBILINOGEN 0.2 MG/DL (NORM)
[2017-03-31 01:21] LABS: MICRO INDICATED? YES
[2017-03-31 01:24] LABS: CULTURE INDICATED? NO; URINE BACTERIA NEG (NEG); URINE MUCUS PRESENT; URINE RBC INNUM /[HPF] (0-2); URINE SQUAMOUS EPITHELIAL CELL OCCAS /[HPF]; URINE TRANSITIONAL EPI CELLS FEW /[HPF]
[2017-03-31 01:46] LABS: BASOPHIL% 0.7 % (0-2.5); EOSINOPHIL% 0.1 % (0.0-7.0); HEMATOCRIT 33.7 % (35.0-45.0); HEMOGLOBIN 11.3 gm/dL (12.0-16.0); LYMPHOCYTE# 1.2 X10e3 (1.0-3.5); LYMPHOCYTE% 19.2 % (17.0-45.0); MEAN CELL VOLUME 93.4 FL (83-96); MEAN CORPUSCULAR HEMOGLOBIN 31.5 PG (28-34); MEAN CORPUSCULAR HGB CONC 33.7 g/dL (30-36); MEAN PLATELET VOLUME 6.8 FL (6.5-11.5); MONOCYTE# 0.4 X10e3 (0-1.0); MONOCYTE% 6.6 % (3.0-12.0); NEUTROPHIL# 4.7 X10e3 (1.5-7.1); NEUTROPHIL% 73.4 % (40-75); PLATELET COUNT 265 X10e3 (140-420); RED CELL DISTRIBUTION WIDTH 15.1 % (11.0-15.5); WHITE BLOOD COUNT 6.4 X10e3 (4.0-10.5)
[2017-03-31 01:50] LABS: DIFF IND NO
[2017-03-31 02:06] LABS: ALBUMIN SERUM 3.9 g/dL (3.5-5.0); BILIRUBIN, DIRECT 0.1 mg/dL (0.0-0.2); BILIRUBIN,TOTAL 0.1 mg/dL (0.2-2.0); CALCIUM SERUM 9.3 mg/dL (8.4-10.2); CREATININE SERUM 0.9 mg/dL (0.6-1.4); GLOM FILT RATE Estimated 74.1 mL/min (>60); POTASSIUM 3.8 mmol/L (3.5-5.1); PROTEIN TOTAL SERUM 6.6 g/dL (6.0-8.3)
[2017-06-24] MEDS ORDERED: ADDERALL 15 MG15 M1 (01:38)
== END 2017-03-31 03:30 | disposition home or self-care (01) ==
LOC: SED 23:55
PROVIDERS: Emergency Medicine
DX: R10.9 Unspecified abdominal pain (principal); G89.29 Other chronic pain; F90.9 Attention-deficit hyperactivity disorder, unspecified type; G43.909 Migraine, unspecified, not intractable, without status migrainosus; F31.9 Bipolar disorder, unspecified; Z90.710 Acquired absence of both cervix and uterus; F17.200 Nicotine dependence, unspecified, uncomplicated; Z88.0 Allergy status to penicillin; Z88.8 Allergy status to other drugs, medicaments and biological substances
CPT/HCPCS: 36415; 74000; 74177; 80048; 80076; 80307; 81003; 82150; 82270; 83605; 83690; 84703; 85025; 87086; 96361; 96372; 96374; 96375; 99284; J1170; J2060; J2765; J2930; Q9967

== ENCOUNTER 2017-06-18 18:38 | Emergency (ER) | payer OTHER, MEDICARE ==
[~2017-06-18] VITALS: Ht 167.6 cm; Wt 86.2 kg
--- NOTE | ~2017-06-18 | EKG ---
PATIENT: ANIVAL TURNER UNIT #: [id number] Ventricular Rate: 92 BPM Atrial Rate: 92 BPM P-R Interval: 166 ms QRS Duration: 78 ms Q-T Interval: 382 ms QTC Calculation(Bezet): 472 ms P Boyce: 54 degrees Calculated R Boyce: 33 degrees Calculated T Boyce: 44 degrees Diagnosis Line: Normal sinus rhythm Diagnosis Line: Low voltage QRS Diagnosis Line: Borderline ECG Diagnosis Line: When compared with ECG of 10-MAR-2017 04:13, Diagnosis Line: T wave inversion less evident in Anterolateral Diagnosis Line: leads Diagnosis Line: Confirmed by CARMINE SAMANIEGO MD ([id number]) on Diagnosis Line: 06/26/2017 9:58:03 PM INTERPRETING : ANAI
--- NOTE | ~2017-06-18 | CT71 ---
[facility] A Service [facility] RADIOLOGY TEXT RESULTS PATIENT: ANIVAL TURNER LOCATION: SED : 65 UNIT #: [id number] AGE: [address]: Brian Medina MD SEX: F ORDER DR: [id number] [place] [address] [id number] E MR#: [id number] Acc #: [id number] NAME: ANIVAL TURNER : 1965 SEX: F STUDY DATE/TIME: 06/18/2017 20:21 UNIT: SED ROOM: STUDY DESCRIPTION: CT Head Wo Contrast Attending Physician: Brian Medina M.D. Ordering Physician: Brian Medina M.D. Primary Care Physician: Gina Saleem M.D. MEDICAL IMAGING REPORT This report is preliminary unless electronic signature is present. EXAM CT brain without contrast HISTORY Syncope and fall yesterday. Headache. This CT exam was performed with one or more of the following radiation dose reduction techniques: automatic exposure control, adjustment of mA and/or kV according to patient size, and iterative reconstruction. FINDINGS CT brain without contrast demonstrates no intracranial hemorrhage, mass or edema. No midline shift or ventricular dilatation or extraaxial fluid collection. Developmental unfused posterior midline arch of C1 partly visualized. IMPRESSION Negative head CT. Dictated by... Kevin Bynum M.D. THIS IS AN ELECTRONICALLY VERIFIED REPORT Kevin Bynum M.D. at 06/18/2017 11:24 PM CAROL/sharron TD: 06/18/2017 22:22 JOB #: [id number] [facility] RADIOLOGY TEXT RESULTS PATIENT: ANIVAL TURNER LOCATION: SED : 65 UNIT #: [id number] AGE: [address]: Brian Medina MD SEX: F ORDER DR: MEDICAL IMAGING REPORT Page 1 of 1
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
--- NOTE | ~2017-06-18 | CR21 ---
[facility] A Service of [place] & [facility] RADIOLOGY TEXT RESULTS PATIENT: ANIVAL TURNER LOCATION: SED : [birth year] UNIT #: [id number] AGE: [address]: Brian Medina MD SEX: F ORDER DR: [id number] [place] [id number] E MR#: [id number] Acc #: [id number] NAME: ANIVAL TURNER : 1965 SEX: F STUDY DATE/TIME: 06/18/2017 20:10 UNIT: SED ROOM: STUDY DESCRIPTION: CR Ankle Min 3 Views Rt Attending Physician: Brian Medina M.D. Ordering Physician: Brian Medina M.D. Primary Care Physician: Gina Saleem M.D. MEDICAL IMAGING REPORT This report is preliminary unless electronic signature is present. EXAM Right ankle, 3 views HISTORY Ankle pain after injury 2 weeks ago. Swelling. FINDINGS AP, lateral, and oblique projections of the ankle show satisfactory integrity of the joint mortise with a smooth articular surface. There is no identifiable fracture, dislocation, or radiopaque foreign body. IMPRESSION Normal ankle. Dictated by... Kevin Bynum M.D. THIS IS AN ELECTRONICALLY VERIFIED REPORT Kevin Bynum M.D. at 06/18/2017 11:24 PM DFL/renetta TD: 06/18/2017 22:19 JOB #: [id number] MEDICAL IMAGING REPORT Page 1 of 1
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
[2017-06-18] MEDS ORDERED: XANAX1 MG (18:49)
[2017-06-18 20:08] LABS: BASOPHIL% 0.7 % (0-2.5); EOSINOPHIL# 0.1 X10e3 (0-0.7); EOSINOPHIL% 2.2 % (0.0-7.0); HEMATOCRIT 34.9 % (35.0-45.0); LYMPHOCYTE# 1.6 X10e3 (1.0-3.5); LYMPHOCYTE% 33.9 % (17.0-45.0); MEAN CELL VOLUME 94.4 FL (83-96); MEAN CORPUSCULAR HEMOGLOBIN 32.4 PG (28-34); MEAN CORPUSCULAR HGB CONC 34.3 g/dL (30-36); MEAN PLATELET VOLUME 6.6 FL (6.5-11.5); MONOCYTE# 0.3 X10e3 (0-1.0); MONOCYTE% 6.4 % (3.0-12.0); NEUTROPHIL# 2.7 X10e3 (1.5-7.1); NEUTROPHIL% 56.8 % (40-75); PLATELET COUNT 270 X10e3 (140-420); RED CELL DISTRIBUTION WIDTH 14.6 % (11.0-15.5); WHITE BLOOD COUNT 4.7 X10e3 (4.0-10.5)
[2017-06-18 20:09] LABS: DIFF IND NO
[2017-06-18 20:42] LABS: ALBUMIN SERUM 3.8 g/dL (3.5-5.0); ALKALINE PHOSPHATASE 114 U/L (32-92); ALT (SGPT) 27 U/L (10-40); AST (SGOT) 18 U/L (10-42); BILIRUBIN, DIRECT <0.1 mg/dL (0.0-0.2); BILIRUBIN,INDIRECT 0.3 mg/dL (0.0-0.9); BILIRUBIN,TOTAL 0.4 mg/dL (0.2-2.0); BLOOD UREA NITROGEN 15 mg/dL (9-23); BUN/CREATININE RATIO 21.42; CARBON DIOXIDE 26 mmol/L (22-31); CHLORIDE 108 mmol/L (100-111); CREATININE SERUM 0.7 mg/dL (0.6-1.4); GLOM FILT RATE Estimated 100.3 mL/min (>60); GLUCOSE FASTING 107 mg/dL (70-110); LIPASE 26 U/L (22-51); PROTEIN TOTAL SERUM 6.9 g/dL (6.0-8.3); SODIUM 135 mmol/L (135-145)
[2017-06-24] MEDS ORDERED: ADDERALL 15 MG15 M1 (01:38)
== END 2017-06-18 21:41 | disposition home or self-care (01) ==
LOC: SED 18:38
PROVIDERS: Emergency Medicine
DX: R55 Syncope and collapse (principal); S93.401A Sprain of unspecified ligament of right ankle, initial encounter; R19.7 Diarrhea, unspecified; F17.210 Nicotine dependence, cigarettes, uncomplicated; Z86.718 Personal history of other venous thrombosis and embolism; Z79.899 Other long term (current) drug therapy; Z88.0 Allergy status to penicillin; Z88.5 Allergy status to narcotic agent; Z88.6 Allergy status to analgesic agent; Z88.8 Allergy status to other drugs, medicaments and biological substances; V89.9XXA Person injured in unspecified vehicle accident, initial encounter
CPT/HCPCS: 29540; 36415; 70450; 73590; 73610; 73630; 80048; 80076; 83690; 85025; 93005; 96374; 96375; 96376; 99284; J1170; J1200; J2270; J2550

== ENCOUNTER 2017-06-19 06:32 | Emergency (ER) | payer MEDICARE, OTHER ==
[~2017-06-19 06:32] MED LIST changes: +XANAX1 MG
[2017-06-19 07:38] LABS: URINE SOURCE CLEAN CATCH
[2017-06-19 07:40] LABS: URINE APPEARANCE CLEAR; URINE BILIRUBIN NEG (NEG); URINE BLOOD NEG (NEG); URINE COLOR YELLOW; URINE GLUCOSE NEG (NORM); URINE KETONE NEG (NEG); URINE LEUKOCYTE ESTERASE NEG (NEG); URINE NITRATE NEG (NEG); URINE PROTEIN NEG (NEG); URINE SPECIFIC GRAVITY 1.015 (1.003-1.035); URINE UROBILINOGEN 0.2 MG/DL (NORM)
[2017-06-19 07:44] LABS: MICRO INDICATED? NO
[2017-06-24] MEDS ORDERED: ADDERALL 15 MG15 M1 (01:38)
== END 2017-06-19 08:24 | disposition home or self-care (01) ==
LOC: SED 06:32
PROVIDERS: Emergency Medicine
DX: R10.9 Unspecified abdominal pain (principal); R11.2 Nausea with vomiting, unspecified; R19.7 Diarrhea, unspecified; F41.9 Anxiety disorder, unspecified; F31.9 Bipolar disorder, unspecified; F90.9 Attention-deficit hyperactivity disorder, unspecified type; F17.200 Nicotine dependence, unspecified, uncomplicated; Z88.8 Allergy status to other drugs, medicaments and biological substances; Z88.0 Allergy status to penicillin; Z79.899 Other long term (current) drug therapy
CPT/HCPCS: 81003; 96372; 99284; J1200; J2550

== ENCOUNTER 2017-06-24 03:24 | Inpatient (IN) | payer MEDICARE, OTHER ==
[~2017-06-24] VITALS: Ht 162.6 cm; Wt 86.2 kg
--- NOTE | ~2017-06-24 | CR4 ---
[facility] A Service [facility] RADIOLOGY TEXT RESULTS PATIENT: ANIVAL TURNER LOCATION: [facility] : [birth year] UNIT #: [id number] AGE: [address]: Elisha Polk MD SEX: F ORDER DR: [id number] [facility] [address] [facility]. [place], [place] [address] [id number] I MR#: [id number] Acc #: [id number] NAME: ANIVAL TURNER. : 1965 SEX: F STUDY DATE/TIME: 06/25/2017 7:45 UNIT: [facility] ROOM: [facility] STUDY DESCRIPTION: CR Abdomen Flat Upright or Dec Attending Physician: Elisha Polk M.D. Ordering Physician: Diogo Benton M.D. Primary Care Physician: Edgar Lazo M.D. MEDICAL IMAGING REPORT This report is preliminary unless electronic signature is present EXAM Flat and upright abdomen HISTORY Abdominal cramping for the past 4 days. History of Crohn disease. COMPARISON 03/31/2017 TECHNIQUE Flat and upright views of the abdomen were obtained. FINDINGS The small bowel pattern is unremarkable. The stomach is nondistended. There is a moderately distended loop of colon seen over the mid pelvis. This is nonspecific. No free air is seen on the upright view. IMPRESSION There is one loop of distal colon that is moderately distended in the mid pelvis. Nonspecific finding. No evidence of small bowel distension. No evidence of mechanical obstruction or free air. Dictated by... Von Mane M.D. THIS IS AN ELECTRONICALLY VERIFIED REPORT Von Mane M.D. at 06/27/2017 7:22 AM RLF/renetta TD: 06/25/2017 23:24 JOB #: [id number] [facility] A Service [facility] RADIOLOGY TEXT RESULTS PATIENT: ANIVAL TURNER LOCATION: [facility] : [birth year] UNIT #: [id number] AGE: [address]: Elisha Polk MD SEX: F ORDER DR: MEDICAL IMAGING REPORT Page 1 of 1 COPY
--- NOTE | ~2017-06-24 | CT2 ---
[facility] A Service of [facility] & [facility] RADIOLOGY TEXT RESULTS PATIENT: ANIVAL TURNER LOCATION: C2A : [birth year] UNIT #: [id number] AGE: [address]: Elisah Polk MD SEX: F ORDER DR: [id number] [facility] [address] [place], [place] [address] [id number] I MR#: [id number] Acc #: [id number] NAME: ANIVAL TURNER. : 1965 SEX: F STUDY DATE/TIME: 06/24/2017 7:52 UNIT: C2A ROOM: [facility] STUDY DESCRIPTION: CT Abd and Pelv W Cont Attending Physician: Diogo Benton M.D. Ordering Physician: Freddy Mcnamara Aprn Primary Care Physician: Edgar aLzo M.D. MEDICAL IMAGING REPORT This report is preliminary unless electronic signature is present EXAM CT abdomen and pelvis with contrast HISTORY Right sided upper abdominal pain for the past 3 days with nausea, vomiting and diarrhea. Previous history of colon resection and Crohn's disease. COMPARISON STUDIES 03/30/17 TECHNIQUE Axial images were obtained with intravenous contrast. 100 cc of Isovue was used. This CT exam was performed with one or more of the following radiation dose reduction techniques: automatic exposure control, adjustment of mA and/or kV according to patient size, and iterative reconstruction. FINDINGS At the right lung base, there is minimal infiltrate seen in the right middle lobe that was not noted on previous examination. This was nonspecific. It could represent a minimal pneumonia or atelectasis. In the abdomen, no upper abdominal solid organ abnormalities are seen. No calcified gallstones are noted, and the biliary tree is nondilated. No distended bowel loops are seen to suggest a mechanical obstruction. Postoperative changes are noted in bowel loops. Wire sutures are seen in the sigmoid colon. The patient apparently has had a subtotal colectomy. Mucosal thickening is seen in the sigmoid colon near the anastomosis as well as just distal to it. This could potentially reflect active Crohn's disease or scarring from previous Crohn's flare-ups. Small bowel loops just proximal to the anastomosis are mildly distended and fluid filled. [facility]. [facility] A Service of [facility] & [facility] RADIOLOGY TEXT RESULTS PATIENT: ANIVAL TURNER LOCATION: [address] : [birth year] UNIT #: [id number] AGE: [address]: Elisha Polk MD SEX: F ORDER DR: There is no evidence of ascites or abscess. In the pelvis, there is no evidence of adenopathy, mass or fluid collection. IMPRESSION The patient apparently had a subtotal colectomy with an anastomosis seen in the sigmoid colon to lower descending colon. Mucosal thickening is seen in the sigmoid colon just proximal, at and distal to the anastomosis. This could reflect an active Crohn's flare-up. Bowel loops just above this area are mildly distended and fluid filled suggesting that there is a partial mechanical obstruction secondary to this. Upper abdominal structures are unremarkable with no acute or inflammatory changes seen in the right upper quadrant. Dictated by... Von Mane M.D. THIS IS AN ELECTRONICALLY VERIFIED REPORT Von Mane M.D. at 06/25/2017 10:32 AM EDILMA/emilia TD: 06/25/2017 01:57 JOB #: [id number] MEDICAL IMAGING REPORT Page 1 of 1 COPY
--- NOTE | ~2017-06-24 | HP ---
Unit #: [id number] #: [id number] Patient: ANIVAL TURNER [id number] [address] [place], [place] [address] [id number] I MR#: [id number] NAME: ANIVAL TURNER ROOM: 241 Age: 51 Sex: F Admission Date: 06/24/2017 : 1965 Attending Physician: Diogo Benton M.D. Primary Care Physician: Edgar Lazo M.D. HISTORY AND PHYSICAL HISTORY OF PRESENT ILLNESS 51-year-old white female with a history of Crohn disease, bipolar disorder, subtotal colectomy, small bowel obstruction, COPD, multiple surgeries, generalized anxiety disorder, major depressive disorder, deep vein thrombosis, hypertension, chronic low back pain, ADHD, admitted with abdominal pain, nausea, vomiting, diarrhea for three days. In the ER, she was afebrile. Vital signs were stable. Labs were fairly unremarkable. CT scan showed a small bowel obstruction although I don't have the official report. The patient was admitted. ALLERGIES The patient has stated allergies to penicillin, morphine, ibuprofen, citric acid, Zofran, ketorolac, Abilify. MEDICATIONS Meds prior to admission: 1. Xanax 1 mg t.i.d. 2. Chlorpromazine 50 mg q.8 hours. 3. Klonopin 1 mg t.i.d. 4. Gabapentin 600 mg four times daily. 5. Tenex 3 mg q. h.s. 6. Lortab 10/325, one four times daily p.r.n. for pain. 7. Lamictal 25 mg, two tabs in the morning, two tabs at night. 8. Lidocaine topically p.r.n. 9. Remeron SolTab 15 mg q. h.s. 10. Naprosyn 500 mg b.i.d. 11. Phenergan 25 mg q.6 hours p.r.n. 12. Zoloft 100 mg p.o., dose unknown. 13. Zanaflex 4 mg t.i.d. p.r.n. 14. Ziprasidone 60 mg b.i.d. 15. Ambien 10 mg q. h.s. SURGICAL HISTORY 1. Hysterectomy. 2. Tonsillectomy. 3. Colon resection. 4. Cervical fusion. 5. Hernia repair. 6. Disk surgery. PAST MEDICAL HISTORY 1. Migraine disorder. 2. Bipolar. 3. Anxiety. Unit #: [id number] #: [id number] Patient: ANIVAL TURNER 4. ADHD. 5. Crohn disease. 6. Deep vein thrombosis. SOCIAL HISTORY Smokes one pack of cigarettes daily. No alcohol use. Denies street drug use. FAMILY HISTORY Noncontributory. PHYSICAL EXAMINATION GENERAL: She is awake, alert, oriented x3, asking for more pain medicine and anxiety medication. No acute distress. VITAL SIGNS: Afebrile. Pulse 75, respirations 16, blood pressure 131/97, O2 sat 98%. HEENT: Unremarkable. NECK: Supple without JVD, bruits, adenopathy or thyromegaly. CHEST: Clear to auscultation. HEART: Regular rate and rhythm without any murmurs, rubs or gallops. ABDOMEN: Soft, nondistended, positive bowel sounds. Diffusely tender with voluntary guarding but no rebound tenderness. EXTREMITIES: No clubbing, cyanosis or edema. /RECTAL: Deferred. NEUROLOGICAL: Grossly intact. DIAGNOSTIC STUDIES LABORATORY: Urinalysis normal except for 1+ bacteria. CMP normal except for an alk. phos. of 116, lipase normal. CBC normal. IMAGING: CT scan of the abdomen and pelvis reportedly shows small bowel obstruction. IMPRESSION 1. Small bowel obstruction. 2. History of Crohn's. 3. Status post subtotal colectomy. 4. ADHD. 5. Generalized anxiety disorder. 6. Major depressive disorder. 7. History of deep vein thrombosis. 8. Bipolar disorder. 9. Chronic low back pain. PLAN NPO, IV fluids. GI and Surgery are consulted. Check stool for C. diff. DVT prophylaxis. Further evaluation pending results of above. Dictated by Diogo Benton M.D. INGA/arthur Unit #: [id number] #: [id number] Patient: ANIVAL TURNER TD: 06/24/2017 15:56 JOB #: [id number] HISTORY AND PHYSICAL Page 1 of 1 X Diogo Benton MD HISTORY AND PHYSICAL
--- NOTE | ~2017-06-24 | DS ---
Unit #: [id number] #: [id number] Patient: ANIVAL TURNER [id number] [address] [address] [id number] I MR#: [id number] NAME: ANIVAL TURNER ROOM: 241 Age: 52 Sex: F Admission Date: 06/24/2017 : 1965 Discharge Date: 06/27/2017 Attending Physician: Elisha Polk M.D. Primary Care Physician: Edgar Lazo M.D. DISCHARGE SUMMARY Signing out against medical advice - 06/27/2017. FINAL DIAGNOSES 1. Abdominal pain. 2. Possible Crohn's flare-up. 3. Tobacco abuse. HOSPITAL COURSE Patient was admitted with abdominal pain, nausea, vomiting. Was admitted to Med/Surg unit. Admitting physician was Dr. Benton. Patient was seen by me on 06/26. Then she signed out against medical Advice on 06/27/17. Dictated by... Elisha Polk M.D. SALIMA/arthur TD: 07/20/2017 08:17 JOB #: [id number] DISCHARGE SUMMARY Page 1 of 1 X Elisha Polk MD X DISCHARGE SUMMARY
--- NOTE | ~2017-06-24 | CO ---
Unit #: [id number] #: [id number] Patient: ANIVAL TURNER [id number] [address] [place], [place] [address] [id number] I MR#: [id number] NAME: ANIVAL TURNER. ROOM: 241 Age: 51 Sex: F Admission Date: 06/24/2017 : 1965 Attending Physician: Elisha Polk M.D. Primary Care Physician: Edgar Lazo M.D. Consultation Date: 06/25/2017 CONSULTATION REPORT BRIEF HISTORY The patient is a 51-year-old lady with complex past history, which includes Crohn disease and partial colectomy. She presents with nausea, vomiting for 3 days, also loose bowel movements, crampy abdominal pain. She has had no fevers or chills. No blood per rectum. No hematemesis. She has not had a colonoscopy in quite some time. She is currently not being followed by a GI doctor regularly. PAST MEDICAL HISTORY Anxiety disorder, Crohn disease. PAST SURGICAL HISTORY She has had a hysterectomy, tonsillectomy, colon resection, cervical fusion. HOME MEDICATIONS Lortab, Wellbutrin, Zoloft, Neurontin, acetaminophen, Protonix, and Xanax. ALLERGIES Multiple allergies, please see list. SOCIAL HISTORY Does smoke a pack per day. No alcohol. FAMILY HISTORY Negative for GI malignancy. REVIEW OF SYSTEMS No cardiopulmonary complaints at this time. Else, 10 systems reviewed and negative. PHYSICAL EXAMINATION GENERAL: She is awake, alert, currently afebrile. HEENT: Unremarkable. NECK: Supple. No JVD. Trachea midline. LUNGS: Clear to auscultation. Bilateral breath sounds symmetric. CARDIOVASCULAR: Regular rate and rhythm. ABDOMEN: Soft. It is mildly tender in the suprapubic region. No rebound. No masses. No hernias. EXTREMITIES: No clubbing, cyanosis, or edema. DIAGNOSTIC STUDIES LABORATORY RESULTS: Show white count of 3.7, hemoglobin 11.3. Chemistries are normal. Unit #: [id number] #: [id number] Patient: ANIVAL TURNER IMAGING STUDIES: CT scan shows thickening of the mucosa in distal colon with some proximal dilatation. No air-fluid levels. ASSESSMENT AND PLAN Possible Crohn's flare-up. Doubt small bowel obstruction. The patient is requesting something to drink. We will attempt a bowel prep and colonoscopy. Discussed in detail. Dictated by... Raquel Flores/esau TD: 06/26/2017 02:21 JOB #: [id number] CONSULTATION REPORT Page 1 of 1 X Brian Sánchez MD X CONSULTATION REPORT
--- NOTE | ~2017-06-24 | OR ---
Unit #: [id number] #: [id number] Patient: ANIVAL TURNER [id number] [address] [place], [place] [address] [id number] I MR#: [id number] NAME: ANIVAL TURNER ROOM: 241 Date of Procedure: 06/26/2017 Admission Date: 06/24/2017 Surgeon: Tamir Acosta M.D. : 1965 Attending Physician: Elisha Polk M.D. Primary Care Physician: Edgar Lazo M.D. OPERATIVE REPORT PREOPERATIVE DIAGNOSES Possible recurrent Crohn disease with possible obstruction and anastomosis. POSTOPERATIVE DIAGNOSES Possible recurrent Crohn disease with possible obstruction and anastomosis. ANESTHESIA Monitored anesthesia care. PROCEDURE PERFORMED Colonoscopy to anastomosis at 30 cm. FINDINGS Normal anastomosis with no evidence of obstruction into small bowel. Normal colonoscopy to anastomosis with no evidence for recurrent Crohn disease. SPECIMENS None. COMPLICATIONS None apparent. CONDITION The patient tolerated the procedure well. INDICATIONS FOR PROCEDURE The patient is a 51-year-old white female, who has had a subtotal colectomy for Crohn disease in the past. She presents at this time with nausea, vomiting, and loose stools. She had possible obstruction in the area of the anastomosis. She presents at this time for evaluation by colonoscopy. DESCRIPTION OF PROCEDURE After obtaining informed consent, the patient was brought to the endoscopy suite and after adequate monitored anesthesia care, had the colonoscope placed through the anus and slowly advanced with the lumen always in view. We were able to pass the scope to the area of the anastomosis at 30 to 35 cm. The area of the anastomosis was widely patent. We were able to pass through into the small bowel and this appeared normal. On pulling back through the anastomosis, the area of the anastomosis and the remaining distal sigmoid colon, rectosigmoid, and rectum were all within normal Unit #: [id number] #: [id number] Patient: ANIVAL TURNER limits with no evidence of Crohn's or inflammation. No neoplasm was seen. We were unable to retroflex in the rectum. On pulling back through the anal canal, there were no obvious abnormalities. On digital examination, there was good sphincter tone. No masses palpable. The patient went from the endoscopy suite to recovery area in stable condition. RECOMMENDATIONS Resume preop orders and medications. Diet of choice. Start with clears and advance as tolerated. Dictated by... Raquel Good/esau TD: 06/26/2017 12:29 JOB #: [id number] CC: [facility] OPERATIVE REPORT Page 1 of 1 X Tamir Acosta MD X PROCEDURE OPERATIVE NOTE
[~2017-06-24 03:24] MED LIST changes: +ADDERALL 15 MG15 M1
[2017-06-24 05:01] LABS: BASOPHIL% 0.8 % (0-2.5); EOSINOPHIL# 0.1 X10e3 (0-0.7); EOSINOPHIL% 1.3 % (0.0-7.0); HEMATOCRIT 37.6 % (35.0-45.0); HEMOGLOBIN 12.7 gm/dL (12.0-16.0); LYMPHOCYTE# 1.6 X10e3 (1.0-3.5); LYMPHOCYTE% 35.6 % (17.0-45.0); MEAN CELL VOLUME 94.2 FL (83-96); MEAN CORPUSCULAR HEMOGLOBIN 31.9 PG (28-34); MEAN CORPUSCULAR HGB CONC 33.8 g/dL (30-36); MONOCYTE# 0.3 X10e3 (0-1.0); MONOCYTE% 6.4 % (3.0-12.0); NEUTROPHIL# 2.5 X10e3 (1.5-7.1); NEUTROPHIL% 55.9 % (40-75); PLATELET COUNT 216 X10e3 (140-420); RED BLOOD COUNT 3.99 X10e (3.90-5.30); RED CELL DISTRIBUTION WIDTH 14.2 % (11.0-15.5); WHITE BLOOD COUNT 4.5 X10e3 (4.0-10.5)
[2017-06-24 05:02] LABS: DIFF IND NO
[2017-06-24 05:26] LABS: ALBUMIN SERUM 4.4 g/dL (3.5-5.0); BILIRUBIN, DIRECT 0.1 mg/dL (0.0-0.2); BILIRUBIN,INDIRECT 0.5 mg/dL (0.0-0.9); BILIRUBIN,TOTAL 0.6 mg/dL (0.2-2.0); BUN/CREATININE RATIO 8.88; CALCIUM SERUM 9.4 mg/dL (8.4-10.2); CREATININE SERUM 0.9 mg/dL (0.6-1.4); GLOM FILT RATE Estimated 74.1 mL/min (>60); POTASSIUM 3.5 mmol/L (3.5-5.1); PROTEIN TOTAL SERUM 7.8 g/dL (6.0-8.3)
[2017-06-24 07:36] LABS: URINE SOURCE CLEAN CATCH
[2017-06-24 07:44] LABS: URINE APPEARANCE CLEAR; URINE BILIRUBIN NEG (NEG); URINE BLOOD NEG (NEG); URINE COLOR YELLOW; URINE GLUCOSE NEG (NEG); URINE KETONE NEG (NEG); URINE LEUKOCYTE ESTERASE TRACE (NEG); URINE NITRATE NEG (NEG); URINE PROTEIN NEG (NEG); URINE SPECIFIC GRAVITY 1.007 (1.003-1.035); URINE UROBILINOGEN 0.2 MG/DL (NEG)
[2017-06-24 07:47] LABS: CULTURE INDICATED? YES; URBCS1 AUWI 0-2 /[HPF] (0-2); URINE BACTERIA AUWI 1+ (NEGATIVE); URINE SQUAMOUS EPITHELIAL CELL OCC /[HPF]
[2017-06-24] MEDS ORDERED: ALPRAZOLAM1 MG PO (09:58)
[2017-06-24] MEDS ORDERED: CHLORPROMAZINE50 MG PO (10:08)
[2017-06-24] MEDS ORDERED: KLONOPIN1 MG PO (10:09)
[2017-06-24] MEDS ORDERED: TENEX1 MG PO (10:10)
[2017-06-24] MEDS ORDERED: GABAPENTIN600 MG PO (10:10)
[2017-06-24] MEDS ORDERED: HYDROCODON-ACE1 EAC5 PO (10:11)
[2017-06-24] MEDS ORDERED: LAMOTRIGINE25 M1 PO (10:15)
[2017-06-24] MEDS ORDERED: LEVOFLOXACIN500 MG PO (11:08)
[2017-06-24] MEDS ORDERED: LIDOCAINE HC (11:20)
[2017-06-24] MEDS ORDERED: REMERON SOLTAB15 M1 SL (11:26)
[2017-06-24] MEDS ORDERED: NAPROSYN500 MG PO (11:27)
[2017-06-24] MEDS ORDERED: SERTRALINE HCL100 MG PO (11:56)
[2017-06-24] MEDS ORDERED: PHENERGAN PO (11:56)
[2017-06-24] MEDS ORDERED: ZANAFLEX4 M1 PO (11:57)
[2017-06-24] MEDS ORDERED: ZIPRASIDONE HCL60 MG PO (11:57)
[2017-06-24] MEDS ORDERED: ZOLPIDEM TARTRA10 M1 PO (11:58)
[2017-06-25 06:12] LABS: HEMATOCRIT 34.7 % (35.0-45.0); HEMOGLOBIN 11.3 gm/dL (12.0-16.0); MEAN CELL VOLUME 95.7 FL (83-96); MEAN CORPUSCULAR HEMOGLOBIN 31.3 PG (28-34); MEAN CORPUSCULAR HGB CONC 32.7 g/dL (30-36); MEAN PLATELET VOLUME 7.5 FL (6.5-11.5); RED BLOOD COUNT 3.62 X10e (3.90-5.30); RED CELL DISTRIBUTION WIDTH 14.4 % (11.0-15.5); WHITE BLOOD COUNT 3.7 X10e3 (4.0-10.5)
[2017-06-25 06:37] LABS: BUN/CREATININE RATIO 7.77; CALCIUM SERUM 8.5 mg/dL (8.4-10.2); CREATININE SERUM 0.9 mg/dL (0.6-1.4); GLOM FILT RATE Estimated 74.1 mL/min (>60); POTASSIUM 4.1 mmol/L (3.5-5.1)
[2017-06-26 18:32] LABS: BLOOD UREA NITROGEN <5 mg/dL (9-23); BUN/CREATININE RATIO 5.55; CARBON DIOXIDE 22 mmol/L (22-31); CHLORIDE 107 mmol/L (100-111); CREATININE SERUM 0.9 mg/dL (0.6-1.4); GLOM FILT RATE Estimated 74.1 mL/min (>60); GLUCOSE FASTING 137 mg/dL (70-110); POTASSIUM 4.2 mmol/L (3.5-5.1); SODIUM 139 mmol/L (135-145)
[2017-06-26 22:53] LABS: HEMATOCRIT 34.8 % (35.0-45.0); HEMOGLOBIN 11.6 gm/dL (12.0-16.0); MEAN CELL VOLUME 93.9 FL (83-96); MEAN CORPUSCULAR HEMOGLOBIN 31.2 PG (28-34); MEAN CORPUSCULAR HGB CONC 33.2 g/dL (30-36); RED BLOOD COUNT 3.71 X10e (3.90-5.30); RED CELL DISTRIBUTION WIDTH 14.3 % (11.0-15.5)
== END 2017-06-27 03:15 | disposition left against medical advice (07) | DRG 392 ==
LOC: CED 03:24 → CEDOF 08:51 → CED 11:13 → C2A 11:13 → CEDOF 13:21 → C2A 06-27 03:15
PROVIDERS: Internal Medicine; Surgery
PROC: 0DJD8ZZ Inspection of Lower Intestinal Tract, Via Natural or Artificial Opening Endoscopic (ICD-10-PCS; principal; 2017-06-26 11:16)
DX: R10.9 Unspecified abdominal pain (principal); I10 Essential (primary) hypertension; F32.9 Major depressive disorder, single episode, unspecified; F90.9 Attention-deficit hyperactivity disorder, unspecified type; F41.1 Generalized anxiety disorder; G89.29 Other chronic pain; M54.9 Dorsalgia, unspecified; J44.9 Chronic obstructive pulmonary disease, unspecified; F17.210 Nicotine dependence, cigarettes, uncomplicated; Z90.49 Acquired absence of other specified parts of digestive tract; Z90.710 Acquired absence of both cervix and uterus; Z88.0 Allergy status to penicillin; Z88.6 Allergy status to analgesic agent; Z88.5 Allergy status to narcotic agent; Z88.8 Allergy status to other drugs, medicaments and biological substances; Z86.718 Personal history of other venous thrombosis and embolism
CPT/HCPCS: 36415; 74020; 74177; 80048; 80076; 81003; 83690; 85025; 85027; 87086; 87493; 96374; 96375; 99283; 99285; J1170; J1200; J1650; J2250; J2550; J3360; Q9967

== ENCOUNTER 2017-07-30 18:09 | Emergency (ER) | payer MEDICARE, OTHER ==
--- NOTE | ~2017-07-30 | CR7 ---
[facility]. [facility] A Service of [facility] & [facility] / [facility] RADIOLOGY TEXT RESULTS PATIENT: ANIVAL TURNER LOCATION: SED : [birth year] UNIT #: [id number] AGE: [address]: Farshad Gasca MD SEX: F ORDER DR: [id number] [address] [address] [id number] MR#: [id number] Acc #: [id number] NAME: ANIVAL TURNER : 1965 SEX: F STUDY DATE/TIME: 07/30/2017 19:57 UNIT: SED ROOM: STUDY DESCRIPTION: CR Abdomen Single AP View Attending Physician: Farshad Gasca M.D. Ordering Physician: Farshad Gasca M.D. Primary Care Physician: Edgar Lazo M.D. MEDICAL IMAGING REPORT This report is preliminary unless electronic signature is present. EXAM AP abdomen HISTORY Vomiting and diarrhea for 2 days. FINDINGS The bowel gas pattern is normal. No bowel dilatation or displacement. Surgical staple line in the central pelvis. IMPRESSION No acute findings. No bowel dilatation or displacement. Dictated by... Kevin Bynum M.D. THIS IS AN ELECTRONICALLY VERIFIED REPORT Kevin Bynum M.D. at 07/31/2017 3:32 PM DFL/psc TD: 07/31/2017 11:20 JOB #: [id number] MEDICAL IMAGING REPORT Page 1 of 1
[~2017-07-30 18:09] MED LIST changes: +ALPRAZOLAM1 MG PO; +CHLORPROMAZINE50 MG PO; +LAMOTRIGINE25 M1 PO; +LIDOCAINE HC; +PHENERGAN PO; +REMERON SOLTAB15 M1 SL; +SERTRALINE HCL100 MG PO; +TENEX1 MG PO; +ZANAFLEX4 M1 PO; +ZIPRASIDONE HCL60 MG PO; +ZOLPIDEM TARTRA10 M1 PO
[2017-07-30] MEDS ORDERED: GEODON60 MG PO (18:38)
[2017-07-30] MEDS ORDERED: ELIQUIS5 MG PO (18:38)
[2017-07-30] MEDS ORDERED: ADDERALL20 M1 PO (18:40)
[2017-07-30 19:39] LABS: BASOPHIL# 0.1 X10e3 (0-0.3); BASOPHIL% 1.2 % (0-2.5); EOSINOPHIL# 0.1 X10e3 (0-0.7); EOSINOPHIL% 1.6 % (0.0-7.0); HEMATOCRIT 38.1 % (35.0-45.0); HEMOGLOBIN 12.9 gm/dL (12.0-16.0); LYMPHOCYTE% 36.3 % (17.0-45.0); MEAN CELL VOLUME 94.1 FL (83-96); MEAN CORPUSCULAR HEMOGLOBIN 31.8 PG (28-34); MEAN CORPUSCULAR HGB CONC 33.8 g/dL (30-36); MEAN PLATELET VOLUME 6.8 FL (6.5-11.5); MONOCYTE# 0.3 X10e3 (0-1.0); MONOCYTE% 5.2 % (3.0-12.0); NEUTROPHIL% 55.7 % (40-75); PLATELET COUNT 279 X10e3 (140-420); RED BLOOD COUNT 4.05 X10e (3.90-5.30); WHITE BLOOD COUNT 5.4 X10e3 (4.0-10.5)
[2017-07-30 19:41] LABS: DIFF IND NO
[2017-07-30 19:54] LABS: ALBUMIN SERUM 4.2 g/dL (3.5-5.0); BILIRUBIN, DIRECT 0.2 mg/dL (0.0-0.2); BILIRUBIN,INDIRECT 0.1 mg/dL (0.0-0.9); BILIRUBIN,TOTAL 0.3 mg/dL (0.2-2.0); GLOM FILT RATE Estimated 64.8 mL/min (>60); POTASSIUM 4.1 mmol/L (3.5-5.1); PROTEIN TOTAL SERUM 6.7 g/dL (6.0-8.3)
[2017-07-30 19:58] LABS: URINE SOURCE CLEAN CATCH
[2017-07-30 20:01] LABS: URINE APPEARANCE CLEAR; URINE BILIRUBIN NEG (NEG); URINE BLOOD NEG (NEG); URINE COLOR YELLOW; URINE GLUCOSE NEG (NORM); URINE KETONE NEG (NEG); URINE LEUKOCYTE ESTERASE NEG (NEG); URINE NITRATE NEG (NEG); URINE PH 5.5 (5-8); URINE PROTEIN NEG (NEG); URINE UROBILINOGEN 0.2 MG/DL (NORM)
[2017-07-30 20:02] LABS: MICRO INDICATED? NO
== END 2017-07-30 20:33 | disposition home or self-care (01) ==
LOC: SED 18:09
PROVIDERS: Emergency Medicine
DX: R10.31 Right lower quadrant pain (principal); R11.2 Nausea with vomiting, unspecified; R19.7 Diarrhea, unspecified; F17.210 Nicotine dependence, cigarettes, uncomplicated; Z79.899 Other long term (current) drug therapy; Z88.0 Allergy status to penicillin; Z91.018 Allergy to other foods; Z88.5 Allergy status to narcotic agent; Z88.6 Allergy status to analgesic agent; Z88.8 Allergy status to other drugs, medicaments and biological substances
CPT/HCPCS: 36415; 74000; 80048; 80076; 81003; 83690; 85025; 96361; 96372; 96374; 99284; J0500; J2550